=== PATIENT | male | born 2000 | race Caucasian/White ===

== ENCOUNTER 2021-07-26 13:55 | Emergency (ER) | payer OTHER, SELFPAY ==
[2021-07-26 13:57] VITALS: BP 151/90; PULSE 67; RESP 18; TEMP 36.7; O2SAT 95; BMI 24.0
--- NOTE | 2021-07-26 14:50 | XR_ITS ---
PROCEDURE INFORMATION: Exam: XR Right Shoulder Exam date and time: 07/26/2021 2:50 PM Age: 20 years old Clinical indication: Pain; Shoulder; Right; Patient HX: Injured at work 2 days ago patient stated. ; Additional info: Pain. No accident/injury TECHNIQUE: Imaging protocol: XR Right shoulder. Views: 2 or more views. COMPARISON: CR CXR CHEST(2 VIEWS-NOT PORTABLE) 09/14/2016 11:41 AM FINDINGS: Bones/joints: The clavicle is mildly elevated with respect to the acromion. This may represent acromioclavicular disassociation.. Soft tissues: Normal. IMPRESSION: The clavicle is mildly elevated with respect to the acromion. This may represent acromioclavicular disassociation..
--- NOTE | 2021-07-26 15:06 | HMH.EDGENADL ---
ED Disposition Clinical Impression: Muscle strain of scapular region Qualifiers: Encounter type: initial encounter Laterality: right Qualified Code(s): S46.911A - Strain of unspecified muscle, fascia and tendon at shoulder and upper arm level, right arm, initial encounter Disposition: Home, Self-Care Condition on Discharge: Good Additional Instructions: Sling for 2 days. Off work for 2 days. Ibuprofen and [place] as prescribed. Follow-up with orthopedics, Dr. Holder, if not improved in 2 to 3 days. Additional instructions for CONTROLLED SUBSTANCES: You have been prescribed a medication that is a controlled substance. Controlled substances include pain medications known as opiates and sedative nerve medications known as benzodiazepines. Tramadol, fioricet, and gabapentin are also controlled substances. Some common opiates include: Codeine (such as Tylenol #3) Hydrocodone (Vicodin, Lortab, Lorcet, [place]) Oxycodone (Percocet, Percodan, Oxycodone, Oxy IR) Some common benzodiazepines include: Diazepam (Valium) Lorazepam (Ativan) Alprazolam (Xanax) Clonazepam (Klonopin) Oxazepam (Serax) All of these controlled substances are highly addictive and frequently abused. Misuse can and frequently does lead to addiction as well as overdose and . Medication should be stored in a locked cabinet or other secure storage unit. Do not store the medication in a motor vehicle. Short term supplies, 3 days or less, are prescribed because of the highly addictive nature of the medication. Any of the controlled substance medication NOT taken should be disposed of properly and NOT SAVED. The recommended method of disposing of unused medications is: Place the medicines in a sealable plastic bag. If the medicine is a solid, crush it or add water to dissolve it. Add something undesirable (cat litter, coffee grounds, etc.) Dispose of sealed bag in household trash Do not flush or pour unused medicines down a sink or drain. Controlled substances should not be shared, given away or sold. Because of the addictive nature and frequent abuse, these medications are sometimes stolen. These medications should be kept in a safe place where they cannot be stolen. Do not keep them in your car or purse. Lost or stolen prescriptions for controlled substances WILL NOT BE REFILLED in this emergency department, regardless of whether a police report was filed. Prescriptions: Ibuprofen [Ibuprofen 600mg Tab] 600 mg PO Q6HP PRN #20 tab PRN Reason: Moderate Pain Transmission Status: Pending to [facility] Hydrocod/Acet 5/325 mg [[place] 5/325mg tablet] 1 tab PO Q6HP PRN #8 tab PRN Reason: Pain Transmission Status: Sent to [facility] Referrals: Provider,Enrique, [Primary Care Provider] - Laith Holder MD [Staff Physician] - Forms: Work/School Release - Critical Care Critical Care Time: No Attestation: On 07/26/21, the high probability of a clinically significant, sudden or life threatening deterioration of the following system(s) required my full and direct attention, intervention and personal management. The time I documented below is in addition to time spent performing reported procedures but includes the following listed in this critical care notation. Medical Decision Making - Sebastian Inquiry Pt receiving controlled substance: Yes Sebastian was queried for this patient: Yes Risks and benefits of using a controlled substance: were discussed with pt by me Vital Signs: 07/26/21 13:57 Temperature 98.1 F Temperature Source Oral Pulse Rate [Left Radial] 67 Respiratory Rate 18 Blood Pressure [Right Arm] 151/90 H Blood Pressure Mean [Right Arm] 110 02 Sat by Pulse Oximetry 95 - Radiology Data #1 Image(s): C-Spine, Shoulder Image Reviewed: Yes I have reviewed radiologist's interpretation PROCEDURE INFORMATION: Exam: XR Cervical Spine Exam date and time: 07/26/2021 3:19 PM Age: 20 yea
--- NOTE | 2021-07-26 15:19 | XR_ITS ---
PROCEDURE INFORMATION: Exam: XR Cervical Spine Exam date and time: 07/26/2021 3:19 PM Age: 20 years old Clinical indication: Injury or trauma; Other: Twisted at work; Work related; Blunt trauma; Patient HX: Injured at work two days ago. ; Additional info: Pain TECHNIQUE: Imaging protocol: XR of the cervical spine. Views: 4 or 5 views. COMPARISON: CR XR SHOULDER RT MIN 2V 07/26/2021 3:09 PM FINDINGS: Bones/joints: Normal. No acute fracture. Normal alignment. Soft tissues: Unremarkable. IMPRESSION: No acute findings.
[2021-07-26 16:34] VITALS: BP 146/88; PULSE 74; RESP 17; TEMP 36.7; O2SAT 100
== END 2021-07-26 16:35 | disposition home or self-care (01) ==
PROVIDERS: Emergency Provider Emergency Medicine
DX: S46.911A Strain of unspecified muscle, fascia and tendon at shoulder and upper arm level, right arm, initial encounter (principal); R20.2 Paresthesia of skin; Z79.899 Other long term (current) drug therapy
CPT/HCPCS: 72050; 73030; 99284

== ENCOUNTER 2021-07-31 02:18 | Emergency (ER) | payer OTHER, SELFPAY ==
[2021-07-31 02:20] VITALS: BP 131/94; PULSE 73; RESP 18; TEMP 36.7; O2SAT 99; BMI 23.9
--- NOTE | 2021-07-31 02:35 | PC.NURSE ---
HOSPITAL INSURANCE CLERK EQUAL BILAT. PT REPORTS PAIN WITH NECK MOVEMENT. PT REPORTS THAT HE WAS SEEN IN THE ED PREVIOUSLY AND HAD FILMS.
--- NOTE | 2021-07-31 02:44 | CT_ITS ---
PROCEDURE INFORMATION: Exam: CT Cervical Spine Without Contrast Exam date and time: 07/31/2021 2:44 AM Age: 20 years old Clinical indication: Neck pain and radicular pain (radiculopathy); Cervical region; Additional info: Neck pain after lifting tires, right arm radiculop TECHNIQUE: Imaging protocol: Computed tomography images of the cervical spine without contrast. Radiation optimization: All CT scans at this facility use at least one of these dose optimization techniques: automated exposure control; mA and/or kV adjustment per patient size (includes targeted exams where dose is matched to clinical indication); or iterative reconstruction. COMPARISON: CR XR CERVICAL SPINE 5V 07/26/2021 3:12 PM FINDINGS: Vertebrae: There is some straightening of the cervical spine with loss of the normal cervical lordosis as well as some lateral tilt at the craniocervical junction. No acute fracture or dislocation. No significant degenerative changes identified. Soft tissues: Unremarkable. No prevertebral soft tissue swelling. Lungs: Lung apices are normal. IMPRESSION: Nonspecific loss of the normal cervical lordosis without significant degenerative change otherwise identified. If symptoms persist MRI may be helpful for further evaluation.
--- NOTE | 2021-07-31 02:53 | HMH.EDGENADL ---
ED Disposition Clinical Impression: Cervical radicular pain Disposition: Home, Self-Care Condition on Discharge: Good Additional Instructions: Take Flexeril as directed, additionally take Tylenol, Motrin. Follow-up with your primary care physician as well as Dr. Holder on an outpatient basis. You will need an MRI if you continue to have these persisting symptoms. Avoid heavy lifting. Return to ED with new, worsening, concerning symptoms. Prescriptions: Cyclobenzaprine HCl [Flexeril 10mg tablet] 5 mg PO TID PRN 5 Days #15 tab PRN Reason: Muscle Spasm Transmission Status: Pending to [facility] Referrals: Provider,MD Enrique [Primary Care Provider] - Laith Holder MD [Staff Physician] - - Critical Care Critical Care Time: No Attestation: On 07/31/21, the high probability of a clinically significant, sudden or life threatening deterioration of the following system(s) required my full and direct attention, intervention and personal management. The time I documented below is in addition to time spent performing reported procedures but includes the following listed in this critical care notation. Medical Decision Making - Medical Records Medical records reviewed: Yes: I reviewed the patient's medical records. - Sebastian Inquiry Pt receiving controlled substance: No Vital Signs: 07/31/21 02:20 Temperature 98.1 F Temperature Source Oral Pulse Rate [Left Radial] 73 Respiratory Rate 18 Blood Pressure [Right Arm] 131/94 H Blood Pressure Mean [Right Arm] 106 02 Sat by Pulse Oximetry 99 Oxygen Delivery Method Room Air Orders (Tests/Meds): ED MEDICATIONS Discontinued Medications Generic Name Dose Route Start Last Admin Trade Name Freq PRN Reason Stop Dose Admin Acetaminophen 1,000 mg 07/31/21 02:45 07/31/21 02:53 Acetaminophen 500mg Tab PO 07/31/21 02:46 1,000 mg ONCE ONE Administration Cyclobenzaprine HCl 5 mg 07/31/21 02:46 07/31/21 02:52 Cyclobenzaprine 10mg Tablet PO 07/31/21 02:47 5 mg ONCE ONE Administration Dexamethasone 10 mg 07/31/21 02:44 07/31/21 02:53 Dexamethasone 4mg Tablet PO 07/31/21 02:45 10 mg ONCE ONE Administration - CT Data CT Scan: C-Spine Time Received: 03:[address] Reviewed: Yes: I have reviewed the patient's CT results, I have viewed the radiologist's interpretation Findings Narrative: FINDINGS: Vertebrae: There is some straightening of the cervical spine with loss of the normal cervical lordosis as well as some lateral tilt at the craniocervical junction. No acute fracture or dislocation. No significant degenerative changes identified. Soft tissues: Unremarkable. No prevertebral soft tissue swelling. Lungs: Lung apices are normal. IMPRESSION: Nonspecific loss of the normal cervical lordosis without significant degenerative change otherwise identified. If symptoms persist MRI may be helpful for further evaluation. Medical Decision Narrative: 20-year-old male with past medical history of ADHD is presenting to the ED with neck pain, radiculopathy in his right arm. Differential diagnoses include central cord syndrome, C-spine injury, nerve impingement, rotator cuff injury, musculoskeletal strain, radiculopathy. Given this work-up will include physical exam, CT C-spine without IV contrast. I feel the labs are currently indicated, vital signs are stable. He does endorse subjective numbness over his right upper arm compared to the left arm, his strength is intact, does not have any evidence of hypo or hyperreflexia. His exam is otherwise benign. Would expect his symptoms to be bilateral if this was more consistent with central cord syndrome. Will obtain a CT scan, we are unable to obtain an MRI in this ED. He has previously had an orthopedic referral on an outpatient basis, discussed the importance that he needs to follow-up with this as he may need an MRI for possible nerve impingement if he continues
[2021-07-31 03:59] VITALS: BP 103/63; PULSE 77; RESP 18; TEMP 36.9; O2SAT 98
== END 2021-07-31 04:10 | disposition home or self-care (01) ==
PROVIDERS: Emergency Provider Emergency Medicine
DX: M54.12 Radiculopathy, cervical region (principal); F90.9 Attention-deficit hyperactivity disorder, unspecified type
CPT/HCPCS: 72125; 99284

== ENCOUNTER 2021-09-07 13:04 | Outpatient (RCR) | payer OTHER, SELFPAY | END 2021-09-07 13:05 | disposition home or self-care (01) | LOC: PT 13:04 | DX: M54.12 Radiculopathy, cervical region (principal) | CPT/HCPCS: 97163 ==

== ENCOUNTER 2021-09-27 00:10 | Emergency (ER) | payer OTHER, SELFPAY ==
[2021-09-27 00:03] VITALS: BP 120/88; PULSE 69; RESP 18; TEMP 36.9; O2SAT 100; BMI 19.3
[2021-09-27 00:06] VITALS: BMI 19.3
--- NOTE | 2021-09-27 00:07 | XR_ITS ---
PROCEDURE INFORMATION: Exam: XR Chest Exam date and time: 09/27/2021 12:15 AM Age: 20 years old Clinical indication: Pain; Other: Epigastric; Additional info: Epigastric pain TECHNIQUE: Imaging protocol: XR of the chest. Views: 2 views. COMPARISON: CR CXR CHEST(2 VIEWS-NOT PORTABLE) 09/14/2016 11:41 AM FINDINGS: Lungs: No consolidation. Pleural spaces: No significant pleural effusion. No pneumothorax. Heart/Mediastinum: No cardiomegaly. Bones/joints: No displaced fracture. Soft tissues: Unremarkable. IMPRESSION: No definite acute cardiopulmonary disease.
--- NOTE | 2021-09-27 00:07 | ECG_ITS ---
APPROVED REPORT Exam: Resting ECG HR:61 bpm ECG Measurements Heart Rate 61 AXES CO 159 P 57 QRSd 91 QRS 57 QT 371 T 32 QTc 374 Conclusion SINUS RHYTHM WITH SINUS ARRHYTHMIA NORMAL ECG UNCONFIRMED REPORT Electronically signed by : Musa Veloz MD 09/27/2021 08:20:27
[2021-09-27 00:14] LABS: Basophils # 0.3 K/mm3 (0-0.2); Basophils % 2.5 % (0.1-2.0); Eosinophils # 0.2 K/mm3 (0.0-0.4); Eosinophils % 1.4 % (0.1-12.0); Hematocrit 46.1 % (42.0-52.0); Hemoglobin 15.5 g/dL (14.1-18.0); Lymphocytes # 3.9 K/mm3 (0.7-4.5); Lymphocytes % 35.9 % (10-50); Mean Corpuscular HGB Conc 33.5 g/dL (31.8-35.4); Mean Corpuscular Hemoglobin 31.9 pg (27.0-31.2); Mean Platelet Volume 9.3 fl (7.4-10.4); Monocytes # 0.6 K/mm3 (0.1-1.0); Monocytes % 5.1 % (1.7-9.3); Neutrophils % 55.1 % (37.0-80.0); Platelet Count 205 K/mm3 (142-424); Red Blood Count 4.86 M/mm3 (4.60-6.20); Red Cell Distribution Width 13.4 % (11.5-17.5); White Blood Count 10.9 K/mm3 (4.5-13.0)
[2021-09-27 00:18] LABS: Chloride 104 mmol/L (98-107); Potassium 3.4 mmoL/L (3.5-5.1); Sodium 137 mmol/L (136-145)
[2021-09-27 00:21] LABS: Alanine Aminotransferase 19 U/L (12-78); Albumin Level 4.3 g/dl (3.5-5.0); Albumin/Globulin Ratio 1.7 (1.1-1.8); Alkaline Phosphatase 91 U/L (38-126); Anion Gap 10.4 mEq/L (5-15); Aspartate Amino Transferase 25 U/L (17-59); Bilirubin,Total 0.5 mg/dl (0.2-1.3); Blood Urea Nitrogen 11 mg/dl (9-20); Carbon Dioxide 26 mmol/L (22.0-30.0); Creatinine Clearance Estimated 130 mL/min (50-200); Estimated Glomerular Filt Rate 144 ml/min (>60); GFR (African American) 174 ML/MIN (>60); Globulin 2.6 g/dL (1.3-3.2); Total Protein,Serum 6.9 g/dl (6.3-8.2)
[2021-09-27 00:22] LABS: Calcium 9.5 mg/dl (8.4-10.2); Glucose 101 mg/dl (74-100)
[2021-09-27 00:27] LABS: C-Reactive Protein 0.5 mg/L (0-4)
[2021-09-27 00:43] LABS: Erythrocyte Sedimentation Rate 2 mm/hr (0-15)
[2021-09-27 00:59] LABS: Troponin I < 0.01 ng/ml (0.00-0.034)
--- NOTE | 2021-09-27 01:22 | HMH.EDNVD ---
ED Disposition Clinical Impression: Abdominal pain Qualifiers: Abdominal location: epigastric Qualified Code(s): R10.13 - Epigastric pain Disposition: Home, Self-Care Condition on Discharge: Good Instructions: DI for Acute Abdominal Pain Additional Instructions: see pcp for follow up Prescriptions: Pantoprazole Sodium [Protonix 40mg tablet] 40 mg PO DAILY #30 tab Transmission Status: Pending to [facility] Referrals: Provider,Referral, [Primary Care Provider] - - Critical Care Critical Care Time: No Attestation: On 09/27/21, the high probability of a clinically significant, sudden or life threatening deterioration of the following system(s) required my full and direct attention, intervention and personal management. The time I documented below is in addition to time spent performing reported procedures but includes the following listed in this critical care notation. Medical Decision Making - Medical Records Medical records reviewed: Yes: I reviewed the patient's medical records. - Sebastian Inquiry Pt receiving controlled substance: No Vital Signs: 09/27/21 00:03 Temperature 98.4 F Temperature Source Oral Pulse Rate [Right] 69 Respiratory Rate 18 Blood Pressure [Right Arm] 120/88 Blood Pressure Mean [Right Arm] 98 02 Sat by Pulse Oximetry 100 - Lab Data Lab results reviewed: Yes: I reviewed the patient's lab results. Lab Results 09/27/21 00:03: WBC 10.9, RBC 4.86, Hgb 15.5, Hct 46.1, MCV 95.0 H, MCH 31.9 H, MCHC 33.5, RDW 13.4, Plt Count 205, MPV 9.3, Neut % (Auto) 55.1, Lymph % (Auto) 35.9, [place] % (Auto) 5.1, Eos % (Auto) 1.4, Baso % (Auto) 2.5 H, Neut # (Auto) 6.0, Lymph # (Auto) 3.9, [place] # (Auto) 0.6, Eos # (Auto) 0.2, Baso # (Auto) 0.3 H, ESR 2 09/27/21 00:03: Sodium 137, Potassium 3.4 L, Chloride 104, Carbon Dioxide 26, Anion Gap 10.4, BUN 11, Creatinine 0.70, Estimated Creat Clear 130, Estimated GFR 144, Est GFR ( Amer) 174, Glucose 101 H, Calcium 9.5, Total Bilirubin 0.5, AST 25, ALT 19, Alkaline Phosphatase 91, C-Reactive Protein 0.5, Total Protein 6.9, Albumin 4.3, Globulin 2.6, Albumin/Globulin Ratio 1.7 09/27/21 00:03: Lipase 150 09/27/21 00:05: Troponin I < 0.01 Result diagrams: 09/27/21 00:03 09/27/21 00:03 Orders (Tests/Meds): ED MEDICATIONS Generic Name Dose Route Start Last Admin Trade Name Freq PRN Reason Stop Dose Admin Sodium Chloride 1,000 mls @ 999 mls/hr 09/27/21 00:15 09/27/21 00:14 Sod Chlor 0.9% 1000ml Bag IV 09/27/21 01:15 999 mls/hr .Q1H1M CHAYO Administration Sodium Chloride 8 ml 09/27/21 00:06 Sodium Chloride 0.9% 10ml Vial IV 10/27/21 00:05 NEEDED PRN dilute pepcid Discontinued Medications Generic Name Dose Route Start Last Admin Trade Name Freq PRN Reason Stop Dose Admin Famotidine 20 mg 09/27/21 00:06 09/27/21 00:14 Famotidine 20mg/2ml Vial IV 09/27/21 00:07 20 mg ONCE ONE Administration Ketorolac Tromethamine 30 mg 09/27/21 00:06 09/27/21 00:15 Ketorolac 30mg/Ml Vial IV 09/27/21 00:07 30 mg ONCE ONE Administration Metoclopramide HCl 10 mg 09/27/21 00:06 09/27/21 00:14 Metoclopramide Hcl 10mg/2ml Vial IVP 09/27/21 00:07 10 mg ONCE ONE Administration Ondansetron HCl 4 mg 09/27/21 00:06 09/27/21 00:15 Ondansetron 4mg/2ml Vial IV 09/27/21 00:07 4 mg ONCE ONE Administration ORDERS Category Date Time Status Troponin I Q3H Lab 09/27/21 03:30 Ordered Troponin I Q3H Lab 09/27/21 06:30 Ordered - Radiology Data #1 Image(s): Chest Image Reviewed: Yes I have reviewed radiologist's interpretation Preliminary Findings: Normal/NAD - ECG Data Tracing #1 Normal Sinus Rhythm: Yes Ischemic changes: non-specific ST-T wave changes Medical Decision Narrative: stable exam with labs ok and improved Nausea/Vomiting/Diarrhea HPI - General Chief complaint: Abdominal Pain Stated complaint: abd pain Time Seen by Provider: 09/27/21 01:
[2021-09-27 01:37] LABS: Lipase 150 U/L (23-300)
[2021-09-27 02:05] VITALS: BP 118/80; PULSE 68; RESP 18; TEMP 36.8; O2SAT 99
== END 2021-09-27 02:09 | disposition home or self-care (01) ==
PROVIDERS: Emergency Provider Emergency Medicine
DX: R10.13 Epigastric pain (principal); Z79.1 Long term (current) use of non-steroidal anti-inflammatories (NSAID)
CPT/HCPCS: 71046; 80053; 83690; 84484; 85025; 85651; 86140; 93005; 96374; 96375; 99285; J2405

== ENCOUNTER 2021-10-03 20:45 | Emergency (ER) | payer OTHER, SELFPAY ==
[2021-10-03 20:45] VITALS: BP 112/63; PULSE 60; RESP 18; TEMP 36.8; O2SAT 98; BMI 23.9
--- NOTE | 2021-10-03 20:51 | XR_ITS ---
PROCEDURE INFORMATION: Exam: XR Chest Exam date and time: 10/03/2021 8:58 PM Age: 20 years old Clinical indication: Pain; Chest pressure; Additional info: Chest pain TECHNIQUE: Imaging protocol: XR of the chest. Views: 2 views. COMPARISON: CR XR CHEST 2V 09/27/2021 12:15 AM FINDINGS: Airway: Patent Lungs: Unremarkable. No consolidation. Pleural spaces: Unremarkable. No pleural effusion. No pneumothorax. Heart/Mediastinum: Unremarkable. No cardiomegaly. Bones/joints: No acute skeletal abnormality or aggressive osseous lesion. IMPRESSION: No acute findings.
--- NOTE | 2021-10-03 20:54 | HMH.EDCP ---
ED Disposition Condition on Discharge: Good - Critical Care Critical Care Time: No <Cl Liu - Last Filed: 10/03/21 20:54> <Veronica Ramirez - Last Filed: 10/04/21 03:46> Clinical Impression: Atypical chest pain Disposition: Home, Self-Care Referrals: Provider,Referral, MD [Primary Care Provider] - Attestation: On 10/03/21, the high probability of a clinically significant, sudden or life threatening deterioration of the following system(s) required my full and direct attention, intervention and personal management. The time I documented below is in addition to time spent performing reported procedures but includes the following listed in this critical care notation. Medical Decision Making - Medical Records Medical records reviewed: Yes: I reviewed the patient's medical records. - Sebastian Inquiry Pt receiving controlled substance: No <Cl Liu - Last Filed: 10/03/21 20:54> - Lab Data Result diagrams: 10/03/21 20:49 10/03/21 20:49 <Veronica Ramirez - Last Filed: 10/04/21 03:46> Vital Signs: 10/03/21 20:45 10/03/21 20:56 10/03/21 21:30 Temperature 98.2 F 98.2 F Temperature Source Oral Oral Pulse Rate 83 81 Pulse Rate [Apical] 60 Respiratory Rate 18 18 Blood Pressure 104/55 L 104/55 L Blood Pressure [Right Arm] 112/63 Blood Pressure Mean [Right Arm] 79 Blood Pressure Source [Right Arm] Automatic Cuff Blood Pressure Position [Right Arm] Sitting 02 Sat by Pulse Oximetry 98 99 Oxygen Delivery Method Room Air - Lab Data Lab Results 10/03/21 20:49: WBC 8.9, RBC 4.77, Hgb 15.7, Hct 45.0, MCV 94.2 H, MCH 32.9 H, MCHC 34.9, RDW 13.5, Plt Count 193, MPV 9.5, Neut % (Auto) 53.3, Lymph % (Auto) 37.6, [place] % (Auto) 6.4, Eos % (Auto) 1.1, Baso % (Auto) 1.6, Neut # (Auto) 4.7, Lymph # (Auto) 3.3, [place] # (Auto) 0.6, Eos # (Auto) 0.1, Baso # (Auto) 0.1 05/14/22 20:49: Sodium 139, Potassium 3.7, Chloride 107, Carbon Dioxide 25, Anion Gap 10.7, BUN 13, Creatinine 0.70, Estimated Creat Clear 146, Estimated GFR 144, Est GFR ( Amer) 174, Glucose 82, Calcium 9.2, Total Bilirubin < 0.1 L, AST 25, ALT 17, Alkaline Phosphatase 84, Troponin I < 0.01, Total Protein 7.0, Albumin 4.5, Globulin 2.5, Albumin/Globulin Ratio 1.8 Orders (Tests/Meds): ED MEDICATIONS Discontinued Medications Generic Name Dose Route Start Last Admin Trade Name Freq PRN Reason Stop Dose Admin Acetaminophen 500 mg 10/03/21 21:22 10/03/21 21:24 Acetaminophen 500mg Tab PO 10/03/21 21:23 500 mg ONCE ONE Administration Aspirin 324 mg 10/03/21 20:51 10/03/21 20:53 Aspirin 81mg Chewable Tablet PO 10/03/21 20:52 324 mg ONCE ONE Administration Aspirin 324 mg 10/03/21 20:55 10/03/21 20:58 Aspirin 81mg Chewable Tablet PO 10/03/21 20:56 Not Given ONCE ONE Belladonna Alkaloids 60 ml 10/03/21 21:22 10/03/21 21:24 Gi Cocktail 60ml Udc PO 10/03/21 21:23 60 ml ONCE ONE Administration Medical Decision Narrative: ekg by ms nsr, sinus arryhthmia, no st elev (Cl Liu) Chest Pain HPI - General Mode of Arrival: EMS Limitations: No Limitations Description of Symptoms (Recalled from ER Triage Doc. by RN): Pt c/o chest pain for the past few hours. States he was laying in bed when the chest pain started. No escalating factors or activities. Did not take any medication for the chest pain. Denies any n/v/d. Does c/o being slightly light headed. - History of Present Illness Duration: intermittent Activity at onset: during rest Pain location: substernal Severity: moderate Pain radiation: none Relieving factors: other (lying down) Exacerbating factors: other (siting up) Treatments prior to or on arrival for Cardiac Chest Pain: none <Cl Liu - Last Filed: 10/03/21 20:54> <Veronica Ramirez - Last Filed: 10/04/21 03:46> - General Chief Complaint: Chest Pain Stated Complaint: CP Time Seen by Provider: 10/03/21 20:54 - History of Present Illness HPI
[2021-10-03 20:56] VITALS: BP 104/55; PULSE 83; O2SAT 99
[2021-10-03 21:04] LABS: Basophils # 0.1 K/mm3 (0-0.2); Basophils % 1.6 % (0.1-2.0); Eosinophils # 0.1 K/mm3 (0.0-0.4); Eosinophils % 1.1 % (0.1-12.0); Hemoglobin 15.7 g/dL (14.1-18.0); Lymphocytes # 3.3 K/mm3 (0.7-4.5); Lymphocytes % 37.6 % (10-50); Mean Corpuscular HGB Conc 34.9 g/dL (31.8-35.4); Mean Corpuscular Hemoglobin 32.9 pg (27.0-31.2); Mean Corpuscular Volume 94.2 fl (80-94); Mean Platelet Volume 9.5 fl (7.4-10.4); Monocytes # 0.6 K/mm3 (0.1-1.0); Monocytes % 6.4 % (1.7-9.3); Neutrophils # 4.7 K/mm3 (1.8-7.8); Neutrophils % 53.3 % (37.0-80.0); Platelet Count 193 K/mm3 (142-424); Red Blood Count 4.77 M/mm3 (4.60-6.20); Red Cell Distribution Width 13.5 % (11.5-17.5); White Blood Count 8.9 K/mm3 (4.5-13.0)
--- NOTE | 2021-10-03 21:09 | PC.NURSE ---
patient to radiology
--- NOTE | 2021-10-03 21:10 | PC.NURSE ---
patient back in room
[2021-10-03 21:13] LABS: Alanine Aminotransferase 17 U/L (12-78); Albumin Level 4.5 g/dl (3.5-5.0); Albumin/Globulin Ratio 1.8 (1.1-1.8); Alkaline Phosphatase 84 U/L (38-126); Anion Gap 10.7 mEq/L (5-15); Aspartate Amino Transferase 25 U/L (17-59); Bilirubin,Total < 0.1 mg/dl (0.2-1.3); Blood Urea Nitrogen 13 mg/dl (9-20); Calcium 9.2 mg/dl (8.4-10.2); Carbon Dioxide 25 mmol/L (22.0-30.0); Chloride 107 mmol/L (98-107); Creatinine Clearance Estimated 146 mL/min (50-200); Estimated Glomerular Filt Rate 144 ml/min (>60); GFR (African American) 174 ML/MIN (>60); Globulin 2.5 g/dL (1.3-3.2); Glucose 82 mg/dl (74-100); Potassium 3.7 mmoL/L (3.5-5.1); Sodium 139 mmol/L (136-145)
[2021-10-03 21:28] LABS: Troponin I < 0.01 ng/ml (0.00-0.034)
[2021-10-03 21:30] VITALS: BP 104/55; PULSE 81; RESP 18; TEMP 36.8; O2SAT 97
== END 2021-10-03 21:37 | disposition home or self-care (01) ==
PROVIDERS: Emergency Medicine; Emergency Provider Student in an Organized Health Care Education/Training Program
DX: R07.89 Other chest pain (principal)
CPT/HCPCS: 71046; 80053; 84484; 85025; 93005; 99283

== ENCOUNTER 2021-10-26 17:56 | Emergency (ER) | payer OTHER, SELFPAY ==
[2021-10-26 17:58] VITALS: BP 160/93; PULSE 83; RESP 16; TEMP 36.8; O2SAT 99; BMI 23.0
--- NOTE | 2021-10-26 18:06 | PC.NURSE ---
called dietary for a tray
--- NOTE | 2021-10-26 18:20 | PC.NURSE ---
Meal tray brought to pt
--- NOTE | 2021-10-26 18:20 | PC.NURSE ---
attempted to call pt father Eduar Bridges [phone] to get a more detailed history of pt. Pt states that he sees his psychiatrist who prescribes his daily medicine. PT states that he has an apartment in town but he has no job or food. States his family will not help and his siblings have been told not to help him from his parents. States he has a girlfriend that he plans to leave to for [place] in 2 weeks with is girlfriend after she recovers from a wreck in the [facility].
--- NOTE | 2021-10-26 18:42 | HMH.EDGENADL ---
ED Disposition Clinical Impression: Situational depression Hunger Qualifiers: Encounter type: initial encounter Qualified Code(s): T73.0XXA - Starvation, initial encounter Disposition: Home, Self-Care Condition on Discharge: Fair Instructions: Depression, How to Create a Suicide Prevention Safety Plan Additional Instructions: Nikki community [facility] [place] Address: [address] [place] [address] [address] [place] [address] [employer] Tuesday and 11 AM to 4 PM [phone] National Suicide Prevention Lifeline Hours: Available 24 hours. Languages: Iraqi, Frisian. Learn more [phone] Referrals: Provider,Referral, [Primary Care Provider] - Time of Disposition: 18:56 - Critical Care Critical Care Time: No Attestation: On 10/26/21, the high probability of a clinically significant, sudden or life threatening deterioration of the following system(s) required my full and direct attention, intervention and personal management. The time I documented below is in addition to time spent performing reported procedures but includes the following listed in this critical care notation. Medical Decision Making - Medical Records Medical records reviewed: Yes: I reviewed the patient's medical records. - Sebastian Inquiry Pt receiving controlled substance: No Vital Signs: 10/26/21 17:58 Temperature 98.3 F Temperature Source Oral Pulse Rate [Left Radial] 83 Respiratory Rate 16 Blood Pressure [Right Arm] 160/93 H Blood Pressure Mean [Right Arm] 115 Blood Pressure Source [Right Arm] Automatic Cuff Blood Pressure Position [Right Arm] Sitting 02 Sat by Pulse Oximetry 99 Oxygen Delivery Method Room Air Medical Decision Narrative: In summary this is a previously healthy 20-year-old male with history of bipolar disorder presenting to the emergency department for a welfare check. Patient clinically stable on arrival. Vital signs within normal limits. He is conversational. Seems to be in touch with reality. He is denying suicidal ideation at this time. He does not want to . He does not have a plan of how he would end his life. I am not sure that all of what he says is true. Talks about a girlfriend who lives in [place], they plan to move in together. Her father is rich. His family is mad at him. They do not want to help him. However, his aunt is going to help him find a job. Her works at [employer]. He has not looked for community resources for job assistance, food pantry, etc. Patient ate a dinner tray in the emergency department. Said he felt much better and was eager for discharge. The police cadet who brought him to the ER, Avery, volunteered to take him home. He has an apartment in town. Does not think he will be evicted. He plans to look for a job this week. Will use the help of his aunt. He agreed to a contract of safety. If he has any pressed thoughts or thoughts of hurting himself, he will call his girlfriend. If the girlfriend is not available, he will call officer Avery or 911. We will take all of his psychiatric medications as prescribed. We will call his primary psychiatrist in the morning to discuss the episode that happened today. Patient expressed understanding of the severity of suicidal ideation. Given the phone number for the suicide hotline. Given phone numbers for local social resources. Given return precautions. Stable for discharge. General Adult HPI - General Chief complaint: Psychiatric Symptoms Stated complaint: hasn't eaten for 3 days Time Seen by Provider: 10/26/21 18:00 Mode of Arrival: Ambulatory Limitations: No Limitations Description of Symptoms (Recalled from ER Triage Doc. by RN): escorted by [employer], pt states he has thought about hurting his self due to the fact that he has not ate in 4 days. States he dont want to hurt his self but he is so hungry. STates he lost his job due to a shoulder injury and his parents will not
--- NOTE | 2021-10-26 18:48 | PC.NURSE ---
[facility] notified that pt is ready for DC
[2021-10-26 19:04] VITALS: BP 145/76; PULSE 80; RESP 16; TEMP 36.8; O2SAT 98
== END 2021-10-26 19:05 | disposition home or self-care (01) ==
PROVIDERS: Emergency Provider Emergency Medicine
DX: F43.21 Adjustment disorder with depressed mood (principal); T73.0XXA Starvation, initial encounter; F31.9 Bipolar disorder, unspecified
CPT/HCPCS: 99283

== ENCOUNTER 2021-10-28 15:50 | Emergency (ER) | payer OTHER, SELFPAY ==
[2021-10-28 16:40] VITALS: BP 154/86; PULSE 85; RESP 17; TEMP 37.1; O2SAT 96; BMI 22.6
--- NOTE | 2021-10-28 16:45 | HMH.EDUTC ---
[facility] Disposition Clinical Impression: Situational depression Disposition: Home, Self-Care Condition on Discharge: Good Instructions: Depression Additional Instructions: You need to call [employer] or the [facility] to get food assistance. Nik[facility] Address: [address] [place] [address] Nikki Arriola, [place] [address] [employer] Tuesday and 11 AM to 4 PM [phone] National Suicide Prevention Lifeline Hours: Available 24 hours. Languages: Macedonian, Italian. Learn more [phone] Follow up with your regular doctor. GO TO THE ER FOR ANY WORSENING SYMPTOMS Referrals: Provider,Referral, MD [Primary Care Provider] - Time of Disposition: 17:09 Medical Decision Making - Medical Records Medical records reviewed: No: I reviewed the patient's medical records. - Sebastian Inquiry Pt receiving controlled substance: No Vital Signs: 10/28/21 16:40 10/28/21 17:14 Temperature 98.8 F 98.8 F Temperature Source Oral Pulse Rate 85 Pulse Rate [Left Radial] 85 Respiratory Rate 17 17 Blood Pressure 154/86 H Blood Pressure [Right Arm] 154/86 H Blood Pressure Mean [Right Arm] 108 02 Sat by Pulse Oximetry 96 [facility] HPI - General Stated complaint: stomach ache and vomiting Time Seen by Provider: 10/28/21 16:47 Description of Symptoms (Recalled from Triage Doc. by RN): patient comes in today with multiple complaints. patient states that he is unable to eat due to having no money. patient states that he does not have anyone that can help him. he has complaints of stomach pain, and he is unsure what it causing it. pt was seen in er 10/26 HEENT Symptoms (Recalled from RN notes): No Resp Symptoms (Recalled from RN notes): No Skin Symptoms (Recalled from RN notes): No MS Symptoms (Recalled from RN notes): No Functional Status (Recalled from RN notes): wnl - History of Present Illness Provider Complaint: He states that he is back here today because he has no food to eat. He has not ate anything all day. He has not called [employer] or the [facility] bechu his phone is not working. He denies any SI or HI. - Related Data Previous Rx's Medication Instructions Recorded Hydrocod/Acet 5/325 mg [[place] 1 tab PO Q6HP PRN #8 tab 07/26/21 5/325mg tablet] Ibuprofen [Ibuprofen 600mg Tab] 600 mg PO Q6HP PRN #20 tab 07/26/21 Cyclobenzaprine HCl [Flexeril 10mg 5 mg PO TID PRN 5 Days #15 tab 07/31/21 tablet] Pantoprazole Sodium [Protonix 40mg 40 mg PO DAILY #30 tab 09/27/21 tablet] Allergies Allergy/AdvReac Type Severity Reaction Status Date / Time No Known Allergies Allergy Verified 10/28/21 16:43 - Worker's Comp Is this a Worker's Comp case?: No [facility] History - Hepatitis A Screen Attestation statement:: This patient has been screened for Hepatitis A risk factors. I have reviewed the patient's past medical history: Yes - Social History Smoking Status: Never smoker Occupational Status: employed ROS Obtained: Yes All systems reviewed & no additional complaints - Constitutional Constitutional: Denies chills, Denies fever(s) - Eyes Eyes: Denies eye discharge - ENT Ears, Nose, Mouth, and Throat: Denies sore throat - Cardiovascular Cardiovascular: Denies chest pain - Respiratory Respiratory: Denies chest congestion, Denies cough, Denies dyspnea, Denies stridor, Denies wheezing - Gastrointestinal Gastrointestingal: Denies: abdominal pain, constipation, cramping, diarrhea, nausea, vomiting - Musculoskeletal Musculoskeletal: Denies joint pain - Integumentary/Breasts Skin/Breast: Denies rash Physical Exam - General General appearance: alert, in no apparent distress - Head Head exam: atraumatic, normocephalic, normal inspection - Eye Eye exam: Present: normal appearance, PERRL, EOMI - ENT ENT exam: Present: normal exam, normal oropharynx, mucous membranes moist, TM's normal bilaterally, normal external ear
[2021-10-28 17:14] VITALS: BP 154/86; PULSE 85; RESP 17; TEMP 37.1
== END 2021-10-28 17:17 | disposition home or self-care (01) ==
PROVIDERS: Emergency Provider Nurse Practitioner Family
DX: F43.21 Adjustment disorder with depressed mood (principal); R10.9 Unspecified abdominal pain; R11.10 Vomiting, unspecified
CPT/HCPCS: 99212; G0463

== ENCOUNTER 2022-05-19 02:17 | Emergency (ER) | payer OTHER, SELFPAY ==
[2022-05-19 02:17] VITALS: BP 137/95; PULSE 87; RESP 18; TEMP 36.8; O2SAT 98; BMI 22.8
--- NOTE | 2022-05-19 02:41 | XR_ITS ---
PROCEDURE INFORMATION: Exam: XR Left Knee Exam date and time: 05/19/2022 2:39 AM Age: 21 years old Clinical indication: Left; Patient HX: Knee pain while walking, nki TECHNIQUE: Imaging protocol: Radiologic exam of the Left knee. Views: 3 views. COMPARISON: No relevant prior studies available. FINDINGS: Bones/joints: Normal. Soft tissues: Normal. IMPRESSION: No acute findings.
--- NOTE | 2022-05-19 04:50 | HMH.EDGENADL ---
Discharge Plan Disposition Patient Disposition: Home, Self-Care Prescriptions Prescriptions: New meloxicam 15 mg tablet 15 mg PO DAILY Qty: 10 0RF Referrals Follow up/Referrals: Provider,Referral, MD [Primary Care Provider] - See instructions Clinical Impressions Clinical Impression: Sprain of left knee Instructions Patient Instructions: DI for Knee Sprain Discharge ED Provider: Chris Madsen General Adult HPI General Chief complaint: PAIN Stated complaint: L Leg Pain Time Seen by Provider: 05/19/22 04:00 Mode of Arrival: EMS Source of Information: Patient, EMS and Medical Record Limitations: No Limitations Description of Symptoms (Recalled from ER Triage Doc. by RN): Pt c/o left upper posterior leg pain for the prior 5 months. States that the pain has been worse for the last few days. Denies injury. States that tonight he was walking [address] to his [place] house and his leg pain was too bad to walk so he called 911. History of Present Illness HPI narrative: lt knee pain for a few weeks worse tonight after walking- no other trauma Onset (ago): day(s) Location: lower extremity Severity: moderate Associated symptoms: denies other symptoms Related Data Previous Rx's Medication Instructions Recorded meloxicam 15 mg tablet 15 mg PO DAILY #10 tabs 05/19/22 Allergies Allergy/AdvReac Type Severity Reaction Status Date / Time No Known Allergies Allergy Verified 10/28/21 16:43 [facility] Disclaimer: The information contained in this section may have been updated after the patient was seen, as this information can be updated by other users. Social History Smoking Status: Never smoker alcohol intake: never current occupational status: employed Travel in the last 8 weeks: None ROS Obtained: Yes All systems reviewed & no additional complaints except as documented Physical Exam General General appearance: alert Head Head exam: atraumatic Eye Eye exam: Present PERRL and EOMI ENT ENT exam: Present mucous membranes moist Neck Neck exam: Present trachea midline Respiratory Respiratory exam: Absent respiratory distress Cardiovascular Cardiovascular exam: Present regular rate Abdominal Exam Abdominal exam: Present soft Expanded Lower Extremity Exam Left: Hip/Pelvis exam: Present pelvis stable Knee exam: Present tenderness, knee extension intact and other (no popliteal cyst ); Absent full ROM, swelling, erythema or effusion Lower leg exam: Present Achilles tendon intact; Absent swelling or Homans' sign Neurological Exam Neurological exam: Present alert, oriented X3 and CN II-XII intact Skin Skin exam: Absent rash Medical Decision Making Medical Records Medical records reviewed: Yes I reviewed the patient's medical records. Sebastian Inquiry Pt receiving controlled substance: No Vital Signs: 05/19/22 02:17 05/19/22 04:52 05/19/22 04:52 Temperature 98.2 F 98.2 F Temperature Source Oral Pulse Rate 70 Pulse Rate [Apical] 87 Respiratory Rate 18 18 Blood Pressure 121/73 Blood Pressure [Right Arm] 137/95 H Blood Pressure Mean [Right Arm] 109 Blood Pressure Source [Right Arm] Automatic Cuff Blood Pressure Position [Right Arm] Sitting 02 Sat by Pulse Oximetry 98 Oxygen Delivery Method Room Air Room Air Room Air Orders (Tests/Meds): ED MEDICATIONS Discontinued Medications Generic Name Dose Route Start Last Admin Trade Name Freq PRN Reason Stop Dose Admin Indomethacin 25 mg 05/19/22 04:48 05/19/22 04:53 Indomethacin 25 Mg Capsule PO 05/19/22 04:49 25 mg ONCE ONE Administration ORDERS Category Date Time Status XR knee LT 3V Stat Exams 05/19/22 02:41 Completed Radiology Data #1: Image(s): Knee Image Reviewed: Yes I have reviewed radiologist's interpretation Preliminary Findings: No Fracture Seen Medical Decision Narrative: pt with acute lt knee pain with s
[2022-05-19 04:52] VITALS: BP 121/73; PULSE 70; RESP 18; TEMP 36.8; O2SAT 99
== END 2022-05-19 05:06 | disposition home or self-care (01) ==
PROVIDERS: Emergency Provider Emergency Medicine
DX: S83.92XA Sprain of unspecified site of left knee, initial encounter (principal); M79.605 Pain in left leg
CPT/HCPCS: 73562; 99283

== ENCOUNTER 2022-08-24 15:26 | Emergency (ER) | payer OTHER, SELFPAY ==
[2022-08-24 16:58] VITALS: BP 134/100; PULSE 94; RESP 18; TEMP 36.7; O2SAT 100; BMI 23.0
--- NOTE | 2022-08-24 17:12 | HMH.EDGENADL ---
Discharge Plan Disposition Patient Disposition: Home, Self-Care Condition: Good Prescriptions Prescriptions: New ondansetron 4 mg tablet,disintegrating 4 mg PO Q8H PRN (Reason: nausea and vomiting) Qty: 14 0RF No Action meloxicam 15 mg tablet 15 mg PO DAILY Qty: 10 0RF Referrals Follow up/Referrals: Provider,Referral, [Primary Care Provider] - See instructions Clinical Impressions Clinical Impression: Vomiting Instructions Patient Instructions: DI for Nausea -- Adult Print Language Print Language: Mohawk Discharge ED Provider: Armando Andrews General Adult HPI General Chief complaint: Nausea/Vomiting/Diarrhea Stated complaint: dizzy, vomiting Time Seen by Provider: 08/24/22 17:23 Mode of Arrival: Ambulatory Source of Information: Patient Limitations: No Limitations Description of Symptoms (Recalled from ER Triage Doc. by RN): pt presents to ED stating he needs his ADHD medication refilled. pt informed that ADHD medication refill is at the providers discretion. Pt states he would like to be seen for nausea. pt reports he is nauseated because he hasn't had his ADHD medication in one month. History of Present Illness HPI narrative: Patient presents to the emergency department after he is requesting an ADHD medication refill. He states that he would also like some nausea medicine. Denies any fever, chills, cough, congestion. States that he wakes up every morning at 5 AM and vomits. Related Data Previous Rx's Medication Instructions Recorded meloxicam 15 mg tablet 15 mg PO DAILY #10 tabs 05/19/22 ondansetron 4 mg disintegrating 4 mg PO Q8H PRN nausea and 08/24/22 tablet vomiting #14 tabs Allergies Allergy/AdvReac Type Severity Reaction Status Date / Time No Known Allergies Allergy Verified 10/28/21 16:43 [facility] Disclaimer: The information contained in this section may have been updated after the patient was seen, as this information can be updated by other users. Social History Smoking Status: Never smoker alcohol intake: never current occupational status: employed Travel in the last 8 weeks: None ROS Obtained: Yes All systems reviewed & no additional complaints except as documented Gastrointestinal Gastrointestingal: Reports vomiting Physical Exam General General appearance: alert and in no apparent distress Head Head exam: atraumatic and normocephalic Eye Eye exam: Present normal appearance, PERRL and EOMI Respiratory Respiratory exam: Present normal lung sounds bilaterally Cardiovascular Cardiovascular exam: Present regular rate and normal rhythm Abdominal Exam Abdominal exam: Present soft and normal bowel sounds Extremities Exam Extremities exam: Present normal inspection Neurological Exam Neurological exam: Present alert and oriented X3 Psychiatric Psychiatric exam: Present normal affect and normal mood Medical Decision Making Medical Records Medical records reviewed: Yes I reviewed the patient's medical records. Sebastian Inquiry Pt receiving controlled substance: No Vital Signs: 08/24/22 16:58 Temperature 98.0 F Temperature Source Oral Pulse Rate [Right Radial] 94 H Respiratory Rate 18 Blood Pressure [Right Arm] 134/100 H Blood Pressure Mean [Right Arm] 111 Blood Pressure Source [Right Arm] Automatic Cuff Blood Pressure Position [Right Arm] Sitting 02 Sat by Pulse Oximetry 100 Oxygen Delivery Method Room Air Orders (Tests/Meds): ED MEDICATIONS Discontinued Medications Generic Name Dose Route Start Last Admin Trade Name Freq PRN Reason Stop Dose Admin Ondansetron HCl 4 mg 08/24/22 17:04 08/24/22 17:05 Ondansetron 4mg Odt SL 08/24/22 17:05 4 mg ONCE ONE Administration Medical Decision Narrative: Patient was evaluated and we are not refilling his ADHD medication today. The patient was given Zofran and he was discharged home Critical Care Time
[2022-08-24 17:27] VITALS: BP 134/79; PULSE 80; RESP 17; TEMP 36.7; O2SAT 98
== END 2022-08-24 17:29 | disposition home or self-care (01) ==
LOC: UTC 15:31 → ER 15:49
PROVIDERS: Emergency Provider Emergency Medicine
DX: R42 Dizziness and giddiness (principal); R11.2 Nausea with vomiting, unspecified; R19.7 Diarrhea, unspecified
CPT/HCPCS: 99283; 99284

== ENCOUNTER 2022-08-28 22:24 | Emergency (ER) | payer OTHER, SELFPAY ==
[2022-08-28 22:30] VITALS: BP 155/86; PULSE 95; RESP 16; TEMP 36.6; O2SAT 98; BMI 24.0
--- NOTE | 2022-08-28 23:11 | PC.NURSE ---
Patient chose to leave [facility]. States that he did not know that our hospital didnt have inpatient rehab and he needs to go to rehab so his finace will him. Denies alcohol use today.
[2022-08-28 23:34] VITALS: BP 155/80; PULSE 95; RESP 18; TEMP 36.6; O2SAT 99
== END 2022-08-28 23:43 | disposition left against medical advice (07) ==
PROVIDERS: Emergency Provider Emergency Medicine
DX: Z53.21 Procedure and treatment not carried out due to patient leaving prior to being seen by health care provider (principal)
CPT/HCPCS: 99211

== ENCOUNTER 2022-09-24 22:17 | Emergency (ER) | payer OTHER, SELFPAY ==
[2022-09-24 22:17] VITALS: BP 143/88; PULSE 79; RESP 16; TEMP 36.7; O2SAT 97; BMI 23.2
--- NOTE | 2022-09-24 22:23 | ECG_ITS ---
APPROVED REPORT Exam: Resting ECG HR:66 bpm ECG Measurements Heart Rate 66 AXES AK 164 P 52 QRSd 82 QRS 13 QT 339 T 36 QTc 353 Conclusion SINUS RHYTHM WITH SINUS ARRHYTHMIA NORMAL ECG UNCONFIRMED REPORT Electronically signed by : Musa Veloz MD 09/25/2022 15:51:52
[2022-09-24 22:34] LABS: Basophils # 0.1 K/mm3 (0-0.2); Basophils % 0.8 % (0.1-2.0); Eosinophils # 0.2 K/mm3 (0.0-0.4); Eosinophils % 1.7 % (0.1-12.0); Hematocrit 49.1 % (42.0-52.0); Hemoglobin 16.7 g/dL (14.1-18.0); Lymphocytes # 3.2 K/mm3 (0.7-4.5); Lymphocytes % 33.8 % (10-50); Mean Corpuscular HGB Conc 34.1 g/dL (31.8-35.4); Mean Corpuscular Hemoglobin 31.6 pg (27.0-31.2); Mean Corpuscular Volume 92.9 fl (80-94); Mean Platelet Volume 8.5 fl (7.4-10.4); Monocytes # 0.6 K/mm3 (0.1-1.0); Monocytes % 6.3 % (1.7-9.3); Neutrophils # 5.4 K/mm3 (1.8-7.8); Neutrophils % 57.4 % (37.0-80.0); Platelet Count 220 K/mm3 (142-424); Red Blood Count 5.29 M/mm3 (4.60-6.20); White Blood Count 9.4 K/mm3 (4.8-10.8)
[2022-09-24 22:46] LABS: Chloride 100 mmol/L (98-107)
[2022-09-24 22:47] LABS: Potassium 3.9 mmoL/L (3.5-5.1); Sodium 140 mmol/L (136-145)
[2022-09-24 22:49] LABS: Alanine Aminotransferase 35 U/L (12-78); Aspartate Amino Transferase 38 U/L (17-59); Blood Urea Nitrogen 15 mg/dl (9-20); Creatinine Clearance Estimated 109 mL/min (50-200); Estimated Glomerular Filt Rate 107 ml/min (>60); GFR (African American) 129 ML/MIN (>60)
[2022-09-24 22:50] LABS: Albumin Level 4.7 g/dl (3.5-5.0); Albumin/Globulin Ratio 1.5 (1.1-1.8); Alkaline Phosphatase 67 U/L (38-126); Anion Gap 16.9 mEq/L (5-15); Bilirubin,Total 0.4 mg/dl (0.2-1.3); Calcium 9.3 mg/dl (8.4-10.2); Carbon Dioxide 27 mmol/L (22.0-30.0); Globulin 3.1 g/dL (1.3-3.2); Glucose 85 mg/dl (74-100); Total Protein,Serum 7.8 g/dl (6.3-8.2)
[2022-09-24 22:56] VITALS: BP 132/76; PULSE 71; RESP 16; TEMP 36.7; O2SAT 97
--- NOTE | 2022-09-25 02:45 | HMH.EDGENADL ---
Discharge Plan Disposition Patient Disposition: Home, Self-Care Condition: Good Prescriptions Prescriptions: No Action akckxgcfjxhmzgn-ngkemgaus-RT [Bromfed DM] 2-30-10 mg/5 mL syrup 5 ml PO Q4-6H PRN (Reason: cold symptoms) Qty: 118 0RF amoxicillin-pot clavulanate 875-125 mg tablet 1 tab PO BID 10 Days Qty: 20 0RF Referrals Follow up/Referrals: Provider,Referral, MD [Primary Care Provider] - See instructions Clinical Impressions Clinical Impression: Acute dehydration Instructions Patient Instructions: DI for Muscle Weakness Discharge ED Provider: Jose Miguel Holm General Adult HPI General Chief complaint: Weakness Stated complaint: dehydration, weakness Time Seen by Provider: 09/24/22 22:18 Mode of Arrival: EMS Source of Information: Patient Limitations: No Limitations Description of Symptoms (Recalled from ER Triage Doc. by RN): pt c/o weakness,n/v/d and states he thinks he dehyrdated History of Present Illness HPI narrative: This is a very pleasant 21-year-old gentleman with no significant past medical history who presents to the emergency department with a chief complaint of feeling dehydrated. Denies any specific pain. Denies any chest pain, shortness of breath, abdominal pain. Was brought in by EMS. Related Data Previous Rx's Medication Instructions Recorded amoxicillin 875 mg-potassium 1 tab PO BID 10 days #20 tabs 09/15/22 clavulanate 125 mg tablet relonpbwhcfbirg-glqvetzpbgyamhb-XY 5 ml PO Q4-6H PRN cold symptoms 09/15/22 2 mg-30 mg-10 mg/5 mL oral syrup #118 mL (Bromfed DM) Allergies Allergy/AdvReac Type Severity Reaction Status Date / Time No Known Allergies Allergy Verified 09/15/22 15:42 [facility] Disclaimer: The information contained in this section may have been updated after the patient was seen, as this information can be updated by other users. Surgical History History of tonsillectomy Social History Smoking Status: Never smoker alcohol intake: current substance use type: denies use current occupational status: employed Travel in the last 8 weeks: None household members: friend(s) marital status: single ROS Obtained: Yes All systems reviewed & no additional complaints except as documented Physical Exam General General appearance: alert and in no apparent distress Head Head exam: atraumatic and normocephalic Eye Eye exam: Present normal appearance, PERRL and EOMI ENT ENT exam: Present normal exam Neck Neck exam: Present normal inspection Chest Chest inspection: Present normal inspection Respiratory Respiratory exam: Present normal lung sounds bilaterally Cardiovascular Cardiovascular exam: Present regular rate and normal rhythm Abdominal Exam Abdominal exam: Present soft Extremities Exam Extremities exam: Present normal inspection Neurological Exam Neurological exam: Present alert, oriented X3, CN II-XII intact and normal gait Skin Skin exam: Present warm and dry Medical Decision Making Sebastian Inquiry Pt receiving controlled substance: No Vital Signs: 09/24/22 22:17 09/24/22 22:56 Temperature 98.1 F 98.1 F Temperature Source Oral Oral Pulse Rate 71 Pulse Rate [Right] 79 Respiratory Rate 16 16 Blood Pressure 132/76 Blood Pressure [Right Arm] 143/88 H Blood Pressure Mean [Right Arm] 106 02 Sat by Pulse Oximetry 97 Lab Data Lab Results 09/24/22 22:26: WBC 9.4, RBC 5.29, Hgb 16.7, Hct 49.1, MCV 92.9, MCH 31.6 H, MCHC 34.1, RDW 13.0, Plt Count 220, MPV 8.5, Neut % (Auto) 57.4, Lymph % (Auto) 33.8, Dickson % (Auto) 6.3, Eos % (Auto) 1.7, Baso % (Auto) 0.8, Neut # (Auto) 5.4, Lymph # (Auto) 3.2, Dickson # (Auto) 0.6, Eos # (Auto) 0.2, Baso # (Auto) 0.1 09/24/22 22:26: Sodium 140, Potassium 3.9, Chloride 100, Carbon Dioxide 27, Anion Gap 16.9 H, BUN 15, Creatinine 0.90, Estimated Creat Clear 109, Estimated GFR 107, Est GFR
== END 2022-09-24 23:02 | disposition home or self-care (01) ==
PROVIDERS: Emergency Provider Emergency Medicine
DX: E86.0 Dehydration (principal); R53.1 Weakness
CPT/HCPCS: 80053; 85025; 93005; 96360; 96361; 99284; 99285

== ENCOUNTER 2023-01-17 13:09 | Emergency (ER) | payer OTHER, SELFPAY ==
[2023-01-17 13:45] VITALS: BP 113/62; PULSE 56; RESP 22; TEMP 36.6; O2SAT 99; BMI 23.8
--- NOTE | 2023-01-17 14:07 | EXP.UTC ---
Discharge Plan Disposition Patient Disposition: Home, Self-Care Condition: Good Prescriptions Prescriptions: New meclizine 25 mg tablet 25 mg PO TID PRN (Reason: dizzines) Qty: 20 0RF No Action wjupjjuafpbqygh-nrleweftf-GY [Bromfed DM] 2-30-10 mg/5 mL syrup 5 ml PO Q4-6H PRN (Reason: cold symptoms) Qty: 118 0RF amoxicillin-pot clavulanate 875-125 mg tablet 1 tab PO BID 10 Days Qty: 20 0RF Referrals Follow up/Referrals: Provider,Referral, MD [Primary Care Provider] - See instructions Activity Restrictions/Add. Instructions Additional Instructions/Restrictions: Drink plenty of fluids. Take the medications as directed. The meclizine will make your drowsy, so don't drive or operate heavy machinery after taking it. Follow up with your regular doctor. We will give you a list of regular doctors that are taking new patients. Please call one and get yourself a follow up appointment. GO TO THE ER FOR ANY WORSENING SYMPTOMS Clinical Impressions Clinical Impression: Dizziness Stand Alone Forms Stand Alone Forms: Work/School Release Instructions Patient Instructions: Vertigo, Meclizine Discharge ED Provider: Rex Powell [facility] General Stated complaint: dizzy for 3 weeks Mode of Arrival: Ambulatory Source of Information: Patient Limitations: No Limitations Time Seen by Provider: 01/17/23 14:07 Description of Symptoms (Recalled from Triage Doc. by RN): PATIENT C/O DIZZINESS X 3-4 WEEKS, DENIES ANY OTHER SYMPTOMS HEENT Symptoms (Recalled from RN notes): Yes Resp Symptoms (Recalled from RN notes): No Skin Symptoms (Recalled from RN notes): No MS Symptoms (Recalled from RN notes): No Functional Status (Recalled from RN notes): WNL History of Present Illness Provider Complaint: He states that he has had intermittent dizziness for the past 3 weeks. Related Data Previous Rx's Medication Instructions Recorded amoxicillin 875 mg-potassium 1 tab PO BID 10 days #20 tabs 09/15/22 clavulanate 125 mg tablet wipjgpswbcpdqie-uiavrqdhdereswp-OT 5 ml PO Q4-6H PRN cold symptoms 09/15/22 2 mg-30 mg-10 mg/5 mL oral syrup #118 mL (Bromfed DM) meclizine 25 mg tablet 25 mg PO TID PRN dizzines #20 tabs 01/17/23 Allergies Allergy/AdvReac Type Severity Reaction Status Date / Time No Known Allergies Allergy Verified 09/15/22 15:42 Worker's Comp Is this a Worker's Comp case?: No [facility] Disclaimer: The information contained in this section may have been updated after the patient was seen, as this information can be updated by other users. Surgical History History of tonsillectomy Social History Smoking Status: Never smoker alcohol intake: current substance use type: denies use current occupational status: employed Travel in the last 8 weeks: None household members: friend(s) marital status: single ROS Obtained: Yes All systems reviewed & no additional complaints except as documented Constitutional Constitutional: Denies chills and Denies fever(s) Eyes Eyes: Denies eye discharge ENT Ears, Nose, Mouth, and Throat: Denies dizziness, Denies otalgia and Denies sore throat Cardiovascular Cardiovascular: Denies chest pain Respiratory Respiratory: Denies shortness of breath, Denies chest congestion, Denies cough, Denies stridor and Denies wheezing Gastrointestinal Gastrointestingal: Denies nausea or vomiting Musculoskeletal Musculoskeletal: Reports system reviewed and no additional complaints, except as documented and Denies arthralgias Integumentary/Breasts Skin/Breast: Denies rash Neurologic Neurologic: Denies dizziness and Denies paresthesias Allergic/Immunologic Allergic/Immunologic: Denies wheezing Physical Exam General General appearance: alert and in no apparent distress Head Head exam: atraumatic, normocephalic and normal inspection Eye Eye exam: Present normal appe
[2023-01-17 14:35] VITALS: BP 113/62; PULSE 56; RESP 22; TEMP 36.6; O2SAT 99
== END 2023-01-17 14:37 | disposition home or self-care (01) ==
PROVIDERS: Emergency Provider Nurse Practitioner Family
DX: R42 Dizziness and giddiness (principal)
CPT/HCPCS: 99212; 99214; G0463